=== PATIENT | male | born 1980 | race African-American/Black ===

== ENCOUNTER 2019-03-09 17:37 | Emergency (ER) | payer BC ==
[2019-03-09] MEDS ORDERED: KETOROLAC TROMETHAMINE 60 MG/2 ML VIAL IM ONE (17:41)
--- NOTE | 2019-03-09 17:41 | PDOC ---
Rapid Medical Evaluation Time Seen by Provider: 03/09/19 17:39 Medical Evaluation: 03/09/19 17:39 I have performed a brief in-person evaluation of this patient. The patient presents with a chief complaint of: right lower back pain Pertinent physical exam findings: No focal findings. I have ordered the following: toradol The patient will proceed to the ED for further evaluation. Discharge Disposition - Diagnosis Lower back pain - Referrals - Patient Instructions - Post Discharge Activity
[2019-03-09 17:42] VITALS: BP 124/47; PULSE 80; TEMP 98.5; BMI 23.6
[2019-03-09] MEDS ORDERED: KETOROLAC TROMETHAMINE 60 MG/2 ML VIAL ONE (17:46)
--- NOTE | 2019-03-09 18:09 | PDOC ---
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 Patient states jumped offered delivery truck yesterday and felt mild pain to the area but states this morning pain was so severe that it was causing him difficulty standing or walking. Occurred: reports: yesterday Severity: reports: mild Pain Location: reports: back Method of Injury: Yes: other Modifying Factors: improves with: None Associated Symptoms (Fall): denies symptoms Past History - Travel Traveled outside of the country in the last 30 days: No Close contact w/someone who was outside of country & ill: No - Past Medical History Allergies/Adverse Reactions: Allergies Allergy/AdvReac Type Severity Reaction Status Date / Time No Known Allergies Allergy Verified 03/09/19 17:43 COPD: No - Suicide/Smoking/Psychosocial Hx Smoking History: Current every day smoker Number of Cigarettes Smoked Daily: 4 Information on smoking cessation initiated: No Hx Alcohol Use: No Drug/Substance Use Hx: No Patient Lives Alone: No Lives with/in: spouse/SO Review of Systems - Review of Systems Able to Perform ROS?: No Is the patient limited Armenian proficient: No Constitutional: No: Symptoms Reported Musculoskeletal: Yes: Back Pain, Muscle Pain (left buttock) Integumentary: No: Symptoms Reported Neurological: No: Symptoms reported, Numbness, Weakness, Dizziness *Physical Exam - Vital Signs Last Vital Signs Temp Pulse Resp BP Pulse Ox 98.5 F 80 16 124/47 L 100 03/09/19 17:40 03/09/19 17:40 03/09/19 17:40 03/09/19 17:40 03/09/19 17:40 03/09/19 18:09 - Physical Exam General Appearance: Yes: Nourished, Appropriately Dressed. No: Apparent Distress Musculoskeletal: positive: Other (left sciatica tenderness). negative: Vertebral Tenderness ED Treatment Course - RADIOLOGY Radiology Studies Ordered: Category Date Time Status SPINE-LUMBAR ONLY [RAD] Stat Radiology 03/09/19 17:54 Ordered - Medications Given in the ED: ED Medications Discontinued Medications Generic Name Dose Route Start Last Admin Trade Name Alexis PRN Reason Stop Dose Admin Ketorolac Tromethamine 60 mg 03/09/19 17:41 03/09/19 17:57 Toradol Injection - IM 03/09/19 17:42 60 mg ONCE ONE Administration Medical Decision Making - Medical Decision Making 03/09/19 18:12 Chief complaint: Low back pain rating down left leg since this morning patient feels triggered after 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 Otherwise vertebral bodies appear unremarkable. Discharge home with suzette and bhaskar *DC/Admit/Observation/Transfer Diagnosis at time of Disposition: Lower back pain, Sciatica - Discharge Dispostion Disposition: HOME Condition at time of disposition: Improved - Referrals - Patient Instructions Printed Discharge Instructions: DI for Back Pain With Sciatica Additional Instructions: Please take medication as prescribed and apply ice to the affected area as much as you can tolerate over the next 72 hours to alleviate inflammation. please do not operate any heavy machinery while taking the Flexeril - Post Discharge Activity
== END 2019-03-09 18:31 | disposition home or self-care (01) ==
LOC: JERFT 17:37
PROC: 3E0233Z Introduction of Anti-inflammatory into Muscle, Percutaneous Approach (ICD-10-PCS; principal; 2019-03-09)
DX: M54.42 Lumbago with sciatica, left side (principal); W17.89XA Other fall from one level to another, initial encounter; Y93.39 Activity, other involving climbing, rappelling and jumping off; Y92.89 Other specified places as the place of occurrence of the external cause; Y99.0 Civilian activity done for income or pay
CPT/HCPCS: 72100-TC-FY; 99282-25